=== PATIENT | female | born 1995 | race Caucasian/White ===

== ENCOUNTER 2021-06-30 04:42 | Emergency (ER) | payer BC ==
[~2021-06-30] VITALS: Ht 180.3 cm; Wt 133.4 kg
[2021-06-30 04:42] VITALS: BP 160/94
[2021-06-30] MEDS ORDERED: NITROGLYCERIN PACKET 1 GM PACKET TD ONE (05:30)
[2021-06-30] MEDS: ASPIRIN 81 MG TAB.CHEW PO ONE (05:43)
== END 2021-06-30 05:44 | disposition home or self-care (01) ==
LOC: ER 04:50
DX: R07.89 Other chest pain (principal); M62.838 Other muscle spasm
CPT/HCPCS: 84703-TC